=== PATIENT | female | born 2000 | race African-American/Black ===

== ENCOUNTER 2020-06-19 11:53 | Emergency (ER) | payer MEDICAID ==
[~2020-06-19] VITALS: Ht 157.5 cm; Wt 96.0 kg
[2020-06-19] MEDS ORDERED: ACETAMINOPHEN 325MG TABLET PO ONE (13:15)
[2020-06-19 13:17] VITALS: BP 127/84
== END 2020-06-19 13:33 | disposition left against medical advice (07) ==
LOC: ER 11:53
DX: O99.412 Diseases of the circulatory system complicating pregnancy, second trimester (principal); Z3A.22 22 weeks gestation of pregnancy; Z88.0 Allergy status to penicillin; Z91.012 Allergy to eggs
CPT/HCPCS: 93005; 99283